=== PATIENT | female | born 1980 | race Caucasian/White ===

== ENCOUNTER 2023-09-11 06:49 | Emergency (ER) | payer BC, SELFPAY ==
[2023-09-11 06:57] VITALS: BP 138/101; PULSE 115; RESP 24; TEMP 36.4; O2SAT 96
[2023-09-11] MEDS: ONDANSETRON 2 MG/ML inj 4 MG IVP ×2 (07:26→09:52)
[2023-09-11] MEDS: 0.9 % SODIUM CHLORIDE 1000 ml 1,000 ML IV ×2 (07:27→09:52)
[2023-09-11 07:29] LABS: Lactate* 2.4 mmol/L (0.5-1.9)
[2023-09-11 07:30] LABS: Basophils Absolute Auto 0.05 K/uL (0.00-0.30); Basophils Percent Auto 0.5 % (0.0-3.0); Eosinophils Absolute Auto 0.09 K/uL (0.00-0.50); Eosinophils Percent Auto 0.9 % (0.0-7.0); Hematocrit 43.5 % (33.0-51.0); Immature Granulocytes Abs Auto 0.01 K/uL (0.00-0.30); Immature Granulocytes Pct Auto 0.1 %; Lymphocytes Percent Auto 18.1 % (20-44); Mean Corpuscular HGB Conc 35 gm/dL (32-36); Mean Corpuscular Hemoglobin 31 pg (26-34); Mean Corpuscular Volume 91 fL (80-100); Monocytes Percent Auto 5.4 % (0.0-11.0); Platelet Count* 282 K/uL (140-440); RDW Coefficient of Variation % 11.3 % (11.5-15.5); Red Blood Count 4.77 m/uL (4.00-5.20); White Blood Count* 10.29 K/uL (4.50-11.00)
[2023-09-11 07:37] LABS: Slide Review Reflex No
--- NOTE | 2023-09-11 07:41 | ED.GENADULT ---
HPI - General Adult General Chief complaint: Nausea/Vomiting <Cheryl Trivedi MD - Last Filed: 09/12/23 00:00> Stated complaint: sore throat,congestion,diarrhea, vomiting <Cheryl Trivedi MD - Last Filed: 09/12/23 00:00> Time Seen by Provider: 09/11/23 07:04 <Cheryl Trivedi MD - Last Filed: 09/12/23 00:00> Source: patient <Cheryl Trivedi MD - Last Filed: 09/12/23 00:00> Mode of arrival: ambulatory <Cheryl Trivedi MD - Last Filed: 09/12/23 00:00> Limitations: no limitations <Cheryl Trivedi MD - Last Filed: 09/12/23 00:00> History of Present Illness HPI narrative: 42-year-old female presents the ED with a 4 day history of initially sore throat, progressing into cough and congestion 3 days ago and now nausea vomiting and diarrhea for the past 2 days. Unable to hold down any liquids. Starting to feel dehydrated. No pertinent travel, no recent antibiotic use. Has been using ibuprofen 400 mg every 6 hours with no significant changes in her symptoms. Has not been evaluated by a provider during this course of illness thus far. No injury or trauma, does have some mild epigastric pain which she attributes to the vomiting. No severe cough or shortness of breath. Feels feverish but has not measured her temperature, some chills. Did home COVID swab that was negative. Gets a little dizzy with activity which she attributes to her dehydration, no focal neuro changes. Past medical history notable for hypertension, takes lisinopril. Allergy to Compazine. Social history notable for nicotine vape use. Denies marijuana. Patient has had multiple abdominal surgeries including 3 prior C-sections, hysterectomy and prior cholecystectomy. She denies a prior history of bowel obstructions. ROS notable for the generalized, GI, HEENT symptoms as above, otherwise denies times 12 systems. <Cheryl Trivedi MD - Last Filed: 09/12/23 00:00> Related Data Home medications: Home Medications Medication Instructions Recorded Confirmed fluticasone propionate 50 2 spray intranasal DAILY 09/11/23 09/11/23 mcg/actuation nasal spray,suspension lisinopril 20 mg tablet 20 mg PO DAILY 09/11/23 09/11/23 <Cheryl Trivedi MD - Last Filed: 09/12/23 00:00> Allergies/adverse reactions: Allergies Allergy/AdvReac Type Severity Reaction Status Date / Time prochlorperazine AdvReac Mild stomach Verified 09/11/23 06:56 [From Compazine] pains <Cheryl Trivedi MD - Last Filed: 09/12/23 00:00> PFSH [facility] Medical History: Medical History Cat bite ?W55.01XA - Bitten by cat, initial encounter (ICD-10) <Cheryl Trivedi MD - Last Filed: 09/12/23 00:00> Social History: Social History Smoking Status: Never smoker <Cheryl Trivedi MD - Last Filed: 09/12/23 00:00> Exam Const: Vital Signs, click to edit/add: Vital Signs - 24 hr 09/11/23 06:57 09/11/23 09:37 09/11/23 11:00 Temperature 97.6 F Pulse Rate [Pulse Oximeter] 115 H 92 82 Respiratory Rate 24 20 16 Blood Pressure [Ri ght Upper Arm] 138/101 H 143/98 H 120/84 Pulse Oximetry 96 95 96 Oxygen Delivery Me thod Room Air Room Air Room Air <hCeryl Trivedi MD - Last Filed: 09/12/23 00:00> Vital Signs, click to edit/add: Vital Signs - 24 hr 09/11/23 06:57 09/11/23 09:37 09/11/23 11:00 Temperature 97.6 F Pulse Rate [Pulse Oximeter] 115 H 92 82 Respiratory Rate 24 20 16 Blood Pressure [Ri ght Upper Arm] 138/101 H 143/98 H 120/84 Pulse Oximetry 96 95 96 Oxygen Delivery Me thod Room Air Room Air Room Air <Nathaniel Nair MD - Last Filed: 09/11/23 11:23> Documenting provider has reviewed patient's vital signs: yes <Cheryl Trivedi MD - Last Filed: 09/12/23 00:00> Common normals: no apparent distress <Cheryl Trivedi MD - Last Filed: 09/12/23 00:00> Other: Appears mildly ill, good historian with no impairment. <Cheryl Trivedi MD - Last Filed: 09/12/23 00:00> HENMT: Common normals: normocephalic <MD Patria Sanchez Last Filed: 09/12/23 00:00> Head and scalp: normocephalic <MD Patria Sanchez Last Filed: 09/12/23 00:00> Face and sinus: normal facial exam <MD Patria Sanchez Last Filed: 09/12/23 00:00> Mouth: oral and palatal mucosa normal <MD Patria Sanchez Last Filed: 09/12/23 00:00> Throat: posterior oropharynx normal <MD Patria Sanchez Last Filed: 09/12/23 00:00> Other: Mucous membranes are slightly dry, otherwise normal. <MD Patria Sanchez Last Filed: 09/12/23 00:00> Eye: General eye: normal appearance of both eyes <MD Patria Sanchez Last Filed: 09/12/23 00:00> Neck & C-Spine: Common normals: full ROM and no lymphadenopathy <MD Patria Sanchez Last Filed: 09/12/23 00:00> Resp: Common normals: normal respiratory effort, no use of accessory muscles and clear to auscultation bilaterally <MD Patria Sanchez Last Filed: 09/12/23 00:00> Effort & inspection: able to speak in complete sentences <MD Patria Sanchez Last Filed: 09/12/23 00:00> Auscultation: clear to auscultation bilaterally <MD Patria Sanchez Last Filed: 09/12/23 00:00> Cardio: Common normals: regular rate, regular rhythm, S1 normal heart sound, S2 normal heart sound and no murmurs <Cheryl Trivedi MD - Last Filed: 09/12/23 00:00> Rate: regular rate <Cheryl Trivedi MD - Last Filed: 09/12/23 00:00> Rhythm: regular rhythm <MD Patria Sanchez Last Filed: 09/12/23 00:00> Heart sounds: S1 normal and S2 normal <Cheryl Trivedi MD - Last Filed: 09/12/23 00:00> Other: Mildly tachycardic, treated to dehydration <MD Patria Sanchez Last Filed: 09/12/23 00:00> GI: Common normals: Normal to inspection, nondistended, normoactive bowel sounds present, soft to palpation, non-tender, no hepatosplenomegaly and no masses <Cheryl Trivedi MD - Last Filed: 09/12/23 00:00> Palpation: soft and no hepatosplenomegaly <MD Patria Sanchez Last Filed: 09/12/23 00:00> Other: Bowel sounds are a little diffusely hypoactive but consistent throughout. <MD Patria Sanchez Last Filed: 09/12/23 00:00> : Common normals: no CVA tenderness <MD Patria Sanchez Last Filed: 09/12/23 00:00> Bladder/kidney exam: no CVA tenderness <MD Patria Sanchez Last Filed: 09/12/23 00:00> Back & Pelvis: Common normals: no CVA tenderness <MD Patria Sanchez Last Filed: 09/12/23 00:00> Extremity: Common normals: normal to inspection and normal capillary refill <MD Patria Sanchez Last Filed: 09/12/23 00:00> Neuro: Speech: speech normal <MD Patria Sanchez Last Filed: 09/12/23 00:00> Motor exam: no tremor noted and no movement abnormalities noted <MD Patria Sanchez Last Filed: 09/12/23 00:00> Psych: Appearance: grossly normal <Cheryl Trivedi MD - Last Filed: 09/12/23 00:00> Attitude: engaged <Cheryl Trivedi MD - Last Filed: 09/12/23 00:00> Activity/motor behavior: appropriate eye contact <Cheryl Trivedi MD - Last Filed: 09/12/23 00:00> Insight: insight good <Cheryl Trivedi MD - Last Filed: 09/12/23 00:00> Judgement: judgment good <Cheryl Trivedi MD - Last Filed: 09/12/23 00:00> Skin: Common normals: no rashes or lesions noted <Cheryl Trivedi MD - Last Filed: 09/12/23 00:00> General skin exam: no rashes or lesions noted <Cheryl Trivedi MD - Last Filed: 09/12/23 00:00> Course Course ED Course: No hypotension but mildly tachycardic, likely secondary to dehydration. Suspicious for viral syndrome, influenza like illness based on presentation. Recommended IV fluid, Zofran, Toradol, Protonix. Swabs for COVID, influenza, RSV recommended. Basic labs to look for pancreatitis, electrolyte abnormalities, kidney function. Risk for prerenal azotemia due to the syncopal use in the setting of illness. Will also obtain urinalysis, lactate level, liver function. Await findings. <Cheryl Trivedi MD - Last Filed: 09/12/23 00:00> Reevaluation(s) Time of Reevaluation #1: 08:12 <Cheryl Trivedi MD - Last Filed: 09/12/23 00:00> Reevaluation #1: Lab findings reviewed with patient, overall quite reassuring. Mild dehydration noted. Patient already starting to feel better from the Zofran and Toradol, currently receiving her Protonix and then will receive her 1 L of IV fluid. I am going to hand over to my in coming day shift partner. Prescription plan for Zofran as needed, suspect viral gastroenteritis. Tylenol and NSAIDs discussed with patient. Nursing team to re-evaluate and update provider after completion of all medications. If not improving, would recommend further assessment, CT scan and another L of IV fluid. - Shikha <Cheryl Trivedi MD - Last Filed: 09/12/23 00:00> Vital Signs Vital signs: Initial Vital Signs Temperature 97.6 F 09/11/23 06:57 Temperature Source Temporal Artery Scan 09/11/23 06:57 Pulse Rate 115 H 09/11/23 06:57 Respiratory Rate 24 09/11/23 06:57 Blood Pressure 138/101 H 09/11/23 06:57 Blood Pressure Mean 113 H 09/11/23 06:57 Pulse Oximetry 96 09/11/23 06:57 Oxygen Delivery Method Room Air 09/11/23 06:57 Vital Signs Temperature 97.6 F 09/11/23 06:57 Pulse Rate 115 H 09/11/23 06:57 Respiratory Rate 24 09/11/23 06:57 Blood Pressure 138/101 H 09/11/23 06:57 Pulse Oximetry 96 09/11/23 06:57 Oxygen Delivery Method Room Air 09/11/23 06:57 Temperature 97.6 F 09/11/23 06:57 Pulse Rate 82 09/11/23 11:00 Respiratory Rate 16 09/11/23 11:00 Blood Pressure 120/84 09/11/23 11:00 Pulse Oximetry 96 09/11/23 11:00 Oxygen Delivery Method Room Air 09/11/23 11:00 <Cheryl Trivedi MD - Last Filed: 09/12/23 00:00> Initial Vital Signs Temperature 97.6 F 09/11/23 06:57 Temperature Source Temporal Artery Scan 09/11/23 06:57 Pulse Rate 115 H 09/11/23 06:57 Respiratory Rate 24 09/11/23 06:57 Blood Pressure 138/101 H 09/11/23 06:57 Blood Pressure Mean 113 H 09/11/23 06:57 Pulse Oximetry 96 09/11/23 06:57 Oxygen Delivery Method Room Air 09/11/23 06:57 Vital Signs Temperature 97.6 F 09/11/23 06:57 Pulse Rate 115 H 09/11/23 06:57 Respiratory Rate 24 09/11/23 06:57 Blood Pressure 138/101 H 09/11/23 06:57 Pulse Oximetry 96 09/11/23 06:57 Oxygen Delivery Method Room Air 09/11/23 06:57 Temperature 97.6 F 09/11/23 06:57 Pulse Rate 82 09/11/23 11:00 Respiratory Rate 16 09/11/23 11:00 Blood Pressure 120/84 09/11/23 11:00 Pulse Oximetry 96 09/11/23 11:00 Oxygen Delivery Method Room Air 09/11/23 11:00 <Nathaniel Nair MD - Last Filed: 09/11/23 11:23> Medications Administered Medications: Discontinued Medications Generic Name Dose Route Start Last Admin Trade Name Freq PRN Reason Stop Dose Admin Hydromorphone HCl 0.5 mg 09/11/23 09:37 09/11/23 09:52 Hydromorphone 0.5 Mg/0.5 Ml Inj IVP 09/11/23 09:38 0.5 mg ONCE ONE Administration Sodium Chloride 1,000 mls @ 1,000 mls/hr 09/11/23 07:05 09/11/23 09:26 0.9 % Sodium Chloride 1000 Ml IV 09/11/23 08:04 Infused .Q1H VICKY Infusion Sodium Chloride 1,000 mls @ 1,000 mls/hr 09/11/23 09:45 09/11/23 11:08 0.9 % Sodium Chloride 1000 Ml IV 09/11/23 10:44 Infused .Q1H VICKY Infusion Ketorolac Tromethamine 15 mg 09/11/23 07:47 09/11/23 08:00 Ketorolac 15 Mg/Ml Inj IVP 09/11/23 07:48 15 mg ONCE ONE Administration Ondansetron HCl 4 mg 09/11/23 07:04 09/11/23 07:26 Ondansetron 2 Mg/Ml Inj IVP 09/11/23 07:05 4 mg ONCE ONE Administration Ondansetron HCl 4 mg 09/11/23 09:37 09/11/23 09:52 Ondansetron 2 Mg/Ml Inj IVP 09/11/23 09:38 4 mg ONCE ONE Administration Pantoprazole Sodium 40 mg 09/11/23 07:47 09/11/23 08:00 Pantoprazole Sodium 40 Mg Inj IVP 09/11/23 07:48 40 mg ONCE ONE Administration <Cheryl Trivedi MD - Last Filed: 09/12/23 00:00> Discontinued Medications Generic Name Dose Route Start Last Admin Trade Name Freq PRN Reason Stop Dose Admin Hydromorphone HCl 0.5 mg 09/11/23 09:37 09/11/23 09:52 Hydromorphone 0.5 Mg/0.5 Ml Inj IVP 09/11/23 09:38 0.5 mg ONCE ONE Administration Sodium Chloride 1,000 mls @ 1,000 mls/hr 09/11/23 07:05 09/11/23 09:26 0.9 % Sodium Chloride 1000 Ml IV 09/11/23 08:04 Infused .Q1H VICKY Infusion Sodium Chloride 1,000 mls @ 1,000 mls/hr 09/11/23 09:45 09/11/23 11:08 0.9 % Sodium Chloride 1000 Ml IV 09/11/23 10:44 Infused .Q1H VICKY Infusion Ketorolac Tromethamine 15 mg 09/11/23 07:47 09/11/23 08:00 Ketorolac 15 Mg/Ml Inj IVP 09/11/23 07:48 15 mg ONCE ONE Administration Ondansetron HCl 4 mg 09/11/23 07:04 09/11/23 07:26 Ondansetron 2 Mg/Ml Inj IVP 09/11/23 07:05 4 mg ONCE ONE Administration Ondansetron HCl 4 mg 09/11/23 09:37 09/11/23 09:52 Ondansetron 2 Mg/Ml Inj IVP 09/11/23 09:38 4 mg ONCE ONE Administration Pantoprazole Sodium 40 mg 09/11/23 07:47 09/11/23 08:00 Pantoprazole Sodium 40 Mg Inj IVP 09/11/23 07:48 40 mg ONCE ONE Administration <Nathaniel Nair MD - Last Filed: 09/11/23 11:23> Medical Decision Making MDM Narrative Medical decision making narrative: CT scan of the abdomen and pelvis radiology report: Hepatic steatosis. No acute findings. This patient is reassured with results and is feeling better with the treatments administered. She is okay to return home to increase diet as tolerated. <Nathaniel Nair MD - Last Filed: 09/11/23 11:23> Lab Data Lab results reviewed: Yes I reviewed the patient's lab results <Cheryl Trivedi MD - Last Filed: 09/12/23 00:00> Labs: Lab Results 09/11/23 09/11/23 Range/Units 07:05 07:20 WBC 10.29 (4.50-11.00) K/uL RBC 4.77 (4.00-5.20) m/uL Hgb 15.0 (12.0-16.0) gm/dL Hct 43.5 (33.0-51.0) % MCV 91 (80-100) fL MCH 31 (26-34) pg MCHC 35 (32-36) gm/dL RDW Coeff of Jerome 11.3 L (11.5-15.5) % Plt Count 282 (140-440) K/uL Neut % (Auto) 75.0 H (42.0-72.0) % Lymph % (Auto) 18.1 L (20-44) % Cottle % (Auto) 5.4 (0.0-11.0) % Eos % (Auto) 0.9 (0.0-7.0) % Baso % (Auto) 0.5 (0.0-3.0) % Neut # (Auto) 7.70 H (1.7-7.0) K/uL Lymph # (Auto) 1.90 (0.90-2.90) K/uL Cottle # (Auto) 0.60 (0.00-0.90) K/UL Eos # (Auto) 0.09 (0.00-0.50) K/uL Baso # (Auto) 0.05 (0.00-0.30) K/uL Abs Immat Gran (auto) 0.01 (0.00-0.30) K/uL Imm/Tot Granulo (auto) 0.1 % Sodium 136 (135-149) mmol/L Potassium 4.6 (3.6-5.1) mmol/L Chloride 103 (96-114) mmol/L Carbon Dioxide 21 (20-32) mmol/L Anion Gap 12 (7-15) mEq/L BUN 10 (5-24) mg/dL Creatinine 0.5 (0.5-1.5) mg/dL Estimated Creat Clear 125.28 Estimated GFR 119 ml/min Glucose 110 (60-115) mg/dL Lactate 2.4 H (0.5-1.9) mmol/L Calcium 8.9 (8.4-10.6) mg/dL Total Bilirubin 0.5 (0.1-1.5) mg/dL AST 53 H (12-35) U/L ALT 44 H (4-35) U/L Alkaline Phosphatase 79 (40-150) U/L C-Reactive Protein 1.5 H (0.5-1.0) mg/dL Total Protein 8.3 (6.0-8.3) g/dL Albumin 4.9 (3.3-5.0) g/dL Lipase 40 (23-300) U/L SARS-CoV-2 (PCR) Negative SARS-CoV-2 (Negative) Influenza Type A (PCR) Negative PCR FLU A (Negative) Influenza Type B (PCR) Negative PCR FLU B (Negative) RSV (PCR) Negative PCR RSV (Negative) <Cheryl Trivedi MD - Last Filed: 09/12/23 00:00> Lab Results 09/11/23 09/11/23 Range/Units 07:05 07:20 WBC 10.29 (4.50-11.00) K/uL RBC 4.77 (4.00-5.20) m/uL Hgb 15.0 (12.0-16.0) gm/dL Hct 43.5 (33.0-51.0) % MCV 91 (80-100) fL MCH 31 (26-34) pg MCHC 35 (32-36) gm/dL RDW Coeff of Jerome 11.3 L (11.5-15.5) % Plt Count 282 (140-440) K/uL Neut % (Auto) 75.0 H (42.0-72.0) % Lymph % (Auto) 18.1 L (20-44) % Cottle % (Auto) 5.4 (0.0-11.0) % Eos % (Auto) 0.9 (0.0-7.0) % Baso % (Auto) 0.5 (0.0-3.0) % Neut # (Auto) 7.70 H (1.7-7.0) K/uL Lymph # (Auto) 1.90 (0.90-2.90) K/uL Cottle # (Auto) 0.60 (0.00-0.90) K/UL Eos # (Auto) 0.09 (0.00-0.50) K/uL Baso # (Auto) 0.05 (0.00-0.30) K/uL Abs Immat Gran (auto) 0.01 (0.00-0.30) K/uL Imm/Tot Granulo (auto) 0.1 % Sodium 136 (135-149) mmol/L Potassium 4.6 (3.6-5.1) mmol/L Chloride 103 (96-114) mmol/L Carbon Dioxide 21 (20-32) mmol/L Anion Gap 12 (7-15) mEq/L BUN 10 (5-24) mg/dL Creatinine 0.5 (0.5-1.5) mg/dL Estimated Creat Clear 125.28 Estimated GFR 119 ml/min Glucose 110 (60-115) mg/dL Lactate 2.4 H (0.5-1.9) mmol/L Calcium 8.9 (8.4-10.6) mg/dL Total Bilirubin 0.5 (0.1-1.5) mg/dL AST 53 H (12-35) U/L ALT 44 H (4-35) U/L Alkaline Phosphatase 79 (40-150) U/L C-Reactive Protein 1.5 H (0.5-1.0) mg/dL Total Protein 8.3 (6.0-8.3) g/dL Albumin 4.9 (3.3-5.0) g/dL Lipase 40 (23-300) U/L SARS-CoV-2 (PCR) Negative SARS-CoV-2 (Negative) Influenza Type A (PCR) Negative PCR FLU A (Negative) Influenza Type B (PCR) Negative PCR FLU B (Negative) RSV (PCR) Negative PCR RSV (Negative) <Nathaniel Nair MD - Last Filed: 09/11/23 11:23> Discharge Plan Discharge Clinical Impression: Gastroenteritis <Cheryl Trivedi MD - Last Filed: 09/12/23 00:00> Patient Disposition: Home, Self-Care <Cheryl Trivedi MD - Last Filed: 09/12/23 00:00> Condition: Improved <Cheryl Trivedi MD - Last Filed: 09/12/23 00:00> Instructions: Gastroenteritis (DC) <Cheryl Trivedi MD - Last Filed: 09/12/23 00:00> Additional Instructions: As we discussed, your symptoms seem to be from a viral illness. There seems to be mild dehydration but no severe signs of illness. The labs are overall reassuring. I would recommend that you hold your lisinopril for today, may restart tomorrow if you start feeling better. You were given a combination of Protonix which is a stomach acid soothing medicine, Zofran which is an anti nausea medicine and Toradol which is a nonnarcotic used for pain. You were also given a L of IV fluid. I will give you a prescription for some additional Zofran. You may take this up to every 6 hours as needed for nausea and vomiting. It should help prevent further dehydration. Drink lots of fluids. It is okay to use Tylenol and ibuprofen as needed for headache, body aches and sore throat. Your swabs were negative for influenza, COVID and RSV as expected. Stay home today but may attempt work tomorrow if you are feeling markedly better. If you continue to run high fevers, have severe vomiting not relieved by the Zofran, bloody stools, severe weakness or other symptoms of concerning worsening, please come back to the emergency department. <Cheryl Trivedi MD - Last Filed: 09/12/23 00:00> Activity Level: Activity as Tolerated <Cheryl Trivedi MD - Last Filed: 09/12/23 00:00> Activity as Tolerated <Nathaniel Nair MD - Last Filed: 09/11/23 11:23> Discharge Diet: Regular <Cheryl Trivedi MD - Last Filed: 09/12/23 00:00> Regular <Nathaniel Nair MD - Last Filed: 09/11/23 11:23> Prescriptions: No Action lisinopril 20 mg tablet 20 mg PO DAILY fluticasone propionate 50 mcg/actuation spray,suspension 2 spray INTRANASAL DAILY <Cheryl Trivedi MD - Last Filed: 09/12/23 00:00> Follow Up/Referrals: oMnse Pereira MD [Primary Care Provider] - <Cheryl Trivedi MD - Last Filed: 09/12/23 00:00> Stand Alone Forms: [facility] Info Instructions <Cheryl Trivedi MD - Last Filed: 09/12/23 00:00>
[2023-09-11 07:46] LABS: Albumin* 4.9 g/dL (3.3-5.0); Chloride* 103 mmol/L (96-114); Sodium* 136 mmol/L (135-149)
[2023-09-11 07:47] LABS: Potassium* 4.6 mmol/L (3.6-5.1)
[2023-09-11 07:49] LABS: Anion Gap 12 mEq/L (7-15); Bilirubin Total* 0.5 mg/dL (0.1-1.5); Carbon Dioxide* 21 mmol/L (20-32); Creatinine* 0.5 mg/dL (0.5-1.5); Est. Creatinine Clearance* 125.28; Estimated Glomerular Filt Rate 119 ml/min
[2023-09-11 07:50] LABS: PCR FLU A Negative PCR FLU A (Negative); PCR FLU B Negative PCR FLU B (Negative); PCR RSV Negative PCR RSV (Negative)
[2023-09-11 07:50] LABS: Alanine Aminotransferase* 44 U/L (4-35); Alkaline Phosphatase* 79 U/L (40-150); Aspartate Amino Transferase* 53 U/L (12-35); Blood Urea Nitrogen* 10 mg/dL (5-24); Calcium* 8.9 mg/dL (8.4-10.6); Glucose* 110 mg/dL (60-115); Lipase* 40 U/L (23-300); Total Protein* 8.3 g/dL (6.0-8.3)
[2023-09-11 07:51] LABS: SARS PCR* Negative SARS-CoV-2 (Negative)
[2023-09-11 07:53] LABS: C Reactive Protein* 1.5 mg/dL (0.5-1.0)
[2023-09-11] MEDS: KETOROLAC 15 MG/ML inj IVP (08:00)
[2023-09-11] MEDS: PANTOPRAZOLE SODIUM 40 MG INJ IVP (08:00)
--- NOTE | 2023-09-11 09:33 | ED.NURSE ---
patient is having increased pain in the epigastric area and rating 8/10 scale, tearful. Informed Dr. Valderrama of this and is unsuccessful in finding someone to get a ride home.
[2023-09-11 09:37] VITALS: BP 143/98; PULSE 92; RESP 20; O2SAT 95
--- NOTE | 2023-09-11 09:37 | CRLHL7_ITS ---
For Patients: As a result of the Century Cures Act, medical imaging exams and procedure reports are released immediately into your electronic medical record. You may view this report before your referring provider. If you have questions, please contact your health care provider. INDICATION: Epigastric pain COMPARISON: 07/02/2017 TECHNIQUE: CT of the abdomen and pelvis after the administration of intravenous contrast. Multiplanar axial, coronal, and sagittal reformats were reconstructed. Contrast: 85 mL Isovue 370 intravenously. Oral contrast was not administered. FINDINGS: Lung bases: Normal. Liver: Mild diffuse hepatic steatosis. No masses. Normal vasculature. Gallbladder and biliary tree: Cholecystectomy. No biliary duct dilation. Pancreas: Normal. Spleen: Normal. Normal size. Adrenal glands: Normal. No nodules. Kidneys and bladder: Normal size and position. Circumaortic left renal vein. No cyst or mass. No calculi. No urinary tract dilation. The urinary bladder is normal. GI: Normal. No dilated segments. No abnormal bowel wall thickening or hyperenhancement. Small stool burden. The appendix is normal. Vessels: Aorta and major branches, including the mesenteric vessels: Patent. Normal caliber. No atherosclerotic plaques. IVC and tributaries: Normal. Mesenteric and portal veins: Normal. Peritoneum: No free fluid. Lymph nodes: No adenopathy. Pelvis: Hysterectomy. Physiologic appearance of ovaries. No pelvic mass. Bones: No fractures. No focal bone lesions. Normal for age. Abdominal wall: Abdominal wall diastasis. Healed abdominal incisions. IMPRESSION: Hepatic steatosis. No acute findings. Please note that all CT scans at this facility use dose modulation, iterative reconstruction, and/or weight-based dosing when appropriate to reduce radiation dose to as low as reasonably achievable. Dictated by Donna Theodore MD @ 09/11/2023 11:05:34 AM (Electronically Signed)
[2023-09-11] MEDS: HYDROmorphone 0.5 mg/0.5 ml inj IVP (09:52)
--- NOTE | 2023-09-11 09:58 | ED.NURSE ---
patient stated the pain comes and goes, agreed to have pain medication 8/10 scale. rocking back and forth on bed. given Zofran before and then Dilaudid. pulse ox 95% room air and [id number]/98
[2023-09-11 11:00] VITALS: BP 120/84; PULSE 82; RESP 16; O2SAT 96
== END 2023-09-11 11:33 | disposition home or self-care (01) ==
PROVIDERS: Family Medicine; Emergency Provider Emergency Medicine Emergency Medical Services; PCP Family Medicine
DX: B34.9 Viral infection, unspecified (principal); H10.023 Other mucopurulent conjunctivitis, bilateral; F43.9 Reaction to severe stress, unspecified
CPT/HCPCS: 36415; 74177; 80053; 83605; 83690; 85025; 86140; 87631; 96374; 96375; 99284; C9113; J1170; J1885; J2405; J7030; Q9967

== ENCOUNTER 2023-09-13 07:40 | Emergency (ER) | payer BC, SELFPAY ==
[2023-09-13 07:47] VITALS: BP 148/96; RESP 18; TEMP 36.2; O2SAT 99
--- NOTE | 2023-09-13 08:36 | ED.GENADULT ---
HPI - General Adult General Chief complaint: Abdominal Pain Stated complaint: flu symptoms / eye pain Time Seen by Provider: 09/13/23 08:16 History of Present Illness HPI narrative: [age] year white female who was here couple days ago and had a negative CT scan abdomen as well as negative lab studies, negative viral studies, presents with red eyes irritation in her eyes, and some intermittent epigastric discomfort. She has had no fevers. She denies chest pain, denies shortness of breath, she feels broken. She just feels she just can not get better, she feels she has responsibilities with her children in her job and these are being met by her report. She is having trouble because she has felt sick. She has had no dysuria, diarrhea, she had a battery of tests few days ago and including a CT scan that showed hepatic cyst the a ptosis of her abdomen. We discussed her treatment plan and follow-up and at this point she is able to eat and drink but I think rehydrating her would be is propria as well as some eye antibiotics for her conjunctivitis. Will recheck viral studies and lab studies and Related Data Home Medications Medication Instructions Recorded Confirmed fluticasone propionate 50 2 spray intranasal DAILY 09/11/23 09/11/23 mcg/actuation nasal spray,suspension lisinopril 20 mg tablet 20 mg PO DAILY 09/11/23 09/11/23 Previous Rx's Medication Instructions Recorded cephalexin 500 mg capsule 500 mg PO TID #42 caps 09/13/23 Allergies Allergy/AdvReac Type Severity Reaction Status Date / Time prochlorperazine AdvReac Mild stomach Verified 09/11/23 06:56 [From Compazine] pains Review of Systems Status of ROS: Reports: 10 or more systems reviewed and unremarkable except as noted in History and below [facility] Medical History Cat bite ?W55.01XA - Bitten by cat, initial encounter (ICD-10) Social History Smoking Status: Never smoker Do you use any of these nicotine containing products: Vaping Products How often do you have a drink containing alcohol: never How often do you have six or more drinks on one occasion: Never AUDIT-C Alcohol total score: 0 Non-prescribed substance use: denies use Exam Narrative: Exam Narrative: Objective: Patient's blood pressure slightly elevated, afebrile, good O2 sat She is in mild distress secondary illness she is alert or x3, has conjunctivitis bilaterally, no facial asymmetry, mouth clear, Chest is clear, heart rhythm regular without murmur Abdomen benign mild epigastric tenderness to palpation. Extremities are no edema, no rashes noted, neurologic normal Const: Vital Signs, click to edit/add: Vital Signs - 24 hr 09/13/23 07:47 09/13/23 10:07 Temperature 97.1 F L Pulse Rate [Right Pulse Oximeter] 70 Respiratory Rate 18 18 Blood Pressure [Ri t Upper Arm] 148/96 H 132/91 H Pulse Oximetry 99 98 Oxygen Delivery Me thod Room Air Room Air Course Vital Signs Vital signs: Initial Vital Signs Temperature 97.1 F L 09/13/23 07:47 Temperature Source Temporal Artery Scan 09/13/23 07:47 Respiratory Rate 18 09/13/23 07:47 Blood Pressure 148/96 H 09/13/23 07:47 Blood Pressure Mean 113 H 09/13/23 07:47 Blood Pressure Position Sitting 09/13/23 07:47 Pulse Oximetry 99 09/13/23 07:47 Oxygen Delivery Method Room Air 09/13/23 07:47 Vital Signs Temperature 97.1 F L 09/13/23 07:47 Respiratory Rate 18 09/13/23 07:47 Blood Pressure 148/96 H 09/13/23 07:47 Pulse Oximetry 99 09/13/23 07:47 Oxygen Delivery Method Room Air 09/13/23 07:47 Temperature 97.1 F L 09/13/23 07:47 Pulse Rate 70 09/13/23 10:07 Respiratory Rate 18 09/13/23 10:07 Blood Pressure 132/91 H 09/13/23 10:07 Pulse Oximetry 98 09/13/23 10:07 Oxygen Delivery Method Room Air 09/13/23 10:07 Medications Administered Medications: Discontinued Medications Generic Name Dose Route Start Last Admin Trade Name Freq PRN Reason Stop Dose Admin Sodium Chloride 1,000 mls @ 6,000 mls/hr 09/13/23 08:45 09/13/23 11:00 0.9 % Sodium Chloride 1000 Ml IV 09/13/23 08:54 Infused .Q10M VICKY Infusion Lorazepam 0.5 mg 09/13/23 08:45 09/13/23 09:27 Lorazepam 2 Mg/Ml Inj IVP 09/13/23 08:46 0.5 mg ONCE ONE Administration Pantoprazole Sodium 40 mg 09/13/23 08:45 09/13/23 09:28 Pantoprazole Sodium 40 Mg Inj IVP 09/13/23 08:46 40 mg ONCE ONE Administration Medical Decision Making MDM Narrative Medical decision making narrative: 42-year-old white female with conjunctivitis, and a viral type syndrome, will check blood cultures, influenza and viral other viral studies. Will recheck her lab studies, IV fluid 1 L. she describes a good amount of stress from her being sick and her responsibilities to work and family. She feels that is cause some depressive symptoms. She does not feel suicidal or homicidal. She will get the above-mentioned studies and disposition pending findings. Addendum 11:00 a.m.: The patient has an EKG that by my read shows normal sinus rhythm. Her troponin is negative as well. , her CRP is elevated but she does have conjunctivitis and upper respiratory symptoms, her troponin is 0, white count is 9000, chemistry profile is unremarkable, lactate is normal, urinalysis looks non clean catch would await the culture. For her conjunctivitis and retro-orbital discomfort that is mild I think I would treat her with Keflex 500 t.i.d. for 10 days, her COVID studies are negative as well as RSV and influenza. I would keep her off work for 4-5 days, note written, return as needed before primary care follow-up. Lab Data Labs: Lab Results 09/13/23 09/13/23 09/13/23 Range/Units 08:46 09:05 09:35 WBC 9.19 (4.50-11.00) K/uL RBC 4.45 (4.00-5.20) m/uL Hgb 14.0 (12.0-16.0) gm/dL Hct 41.2 (33.0-51.0) % MCV 93 (80-100) fL MCH 32 (26-34) pg MCHC 34 (32-36) gm/dL RDW Coeff of [place] 11.2 L (11.5-15.5) % Plt Count 230 (140-440) K/uL Neut % (Auto) 77.7 H (42.0-72.0) % Lymph % (Auto) 16.0 L (20-44) % [place] % (Auto) 4.9 (0.0-11.0) % Eos % (Auto) 0.8 (0.0-7.0) % Baso % (Auto) 0.4 (0.0-3.0) % Neut # (Auto) 7.10 H (1.7-7.0) K/uL Lymph # (Auto) 1.50 (0.90-2.90) K/uL [place] # (Auto) 0.50 (0.00-0.90) K/UL Eos # (Auto) 0.07 (0.00-0.50) K/uL Baso # (Auto) 0.04 (0.00-0.30) K/uL Abs Immat Gran (auto) 0.02 (0.00-0.30) K/uL Imm/Tot Granulo (auto) 0.2 % Sodium 136 (135-149) mmol/L Potassium 4.2 (3.6-5.1) mmol/L Chloride 105 (96-114) mmol/L Carbon Dioxide 22 (20-32) mmol/L Anion Gap 9 (7-15) mEq/L BUN 7 (5-24) mg/dL Creatinine 0.6 (0.5-1.5) mg/dL Estimated Creat Clear 104.40 Estimated GFR 114 ml/min Glucose 109 (60-115) mg/dL Lactate 1.4 (0.5-1.9) mmol/L Calcium 9.6 (8.4-10.6) mg/dL Total Bilirubin 0.5 (0.1-1.5) mg/dL Direct Bilirubin 0.1 (0.0-0.5) mg/dL AST 34 (12-35) U/L ALT 34 (4-35) U/L Alkaline Phosphatase 85 (40-150) U/L C-Reactive Protein 3.4 H (0.5-1.0) mg/dL NT-Pro-B Natriuret Pep 310 pg/mL Total Protein 8.1 (6.0-8.3) g/dL Albumin 4.8 (3.3-5.0) g/dL Amylase 37 (18-89) U/L Urine Color (Yellow) Urine Appearance (Clear) Urine pH (5.0-8.5) Ur Specific [place] (1.000-1.030) Urine Protein (Negative) Urine Glucose (UA) (Negative) Urine Ketones (Negative) Urine Blood (Negative) Urine Nitrite (Negative) Urine Bilirubin (Negative) Urine Urobilinogen (0.2-1.0) Ur Leukocyte Esterase (Negative) Urine RBC (0-2) Urine WBC (0-5) Ur Squamous Epith Cells (None-Few) Urine Bacteria (None) SARS-CoV-2 (PCR) Negative SARS-CoV-2 (Negative) Influenza Type A (PCR) Negative PCR FLU A (Negative) Influenza Type B (PCR) Negative PCR FLU B (Negative) RSV (PCR) Negative PCR RSV (Negative) POC Troponin I 0.00 L (0.01-0.04) ng/ml 09/13/23 Range/Units 10:15 WBC (4.50-11.00) K/uL RBC (4.00-5.20) m/uL Hgb (12.0-16.0) gm/dL Hct (33.0-51.0) % MCV (80-100) fL MCH (26-34) pg MCHC (32-36) gm/dL RDW Coeff of [place] (11.5-15.5) % Plt Count (140-440) K/uL Neut % (Auto) (42.0-72.0) % Lymph % (Auto) (20-44) % [place] % (Auto) (0.0-11.0) % Eos % (Auto) (0.0-7.0) % Baso % (Auto) (0.0-3.0) % Neut # (Auto) (1.7-7.0) K/uL Lymph # (Auto) (0.90-2.90) K/uL [place] # (Auto) (0.00-0.90) K/UL Eos # (Auto) (0.00-0.50) K/uL Baso # (Auto) (0.00-0.30) K/uL Abs Immat Gran (auto) (0.00-0.30) K/uL Imm/Tot Granulo (auto) % Sodium (135-149) mmol/L Potassium (3.6-5.1) mmol/L Chloride (96-114) mmol/L Carbon Dioxide (20-32) mmol/L Anion Gap (7-15) mEq/L BUN (5-24) mg/dL Creatinine (0.5-1.5) mg/dL Estimated Creat Clear Estimated GFR ml/min Glucose (60-115) mg/dL Lactate (0.5-1.9) mmol/L Calcium (8.4-10.6) mg/dL Total Bilirubin (0.1-1.5) mg/dL Direct Bilirubin (0.0-0.5) mg/dL AST (12-35) U/L ALT (4-35) U/L Alkaline Phosphatase (40-150) U/L C-Reactive Protein (0.5-1.0) mg/dL NT-Pro-B Natriuret Pep pg/mL Total Protein (6.0-8.3) g/dL Albumin (3.3-5.0) g/dL Amylase (18-89) U/L Urine Color [place] A (Yellow) Urine Appearance Slightly Cloudy A (Clear) Urine pH 6.0 (5.0-8.5) Ur Specific [place] >= 1.030 (1.000-1.030) Urine Protein 1+ A (Negative) Urine Glucose (UA) Negative (Negative) Urine Ketones Negative (Negative) Urine Blood Trace-intact A (Negative) Urine Nitrite Positive A (Negative) Urine Bilirubin 1+ A (Negative) Urine Urobilinogen 1.0 (0.2-1.0) Ur Leukocyte Esterase Negative (Negative) Urine RBC 0-2 (0-2) Urine WBC 0-2 (0-5) Ur Squamous Epith Cells Moderate A (None-Few) Urine Bacteria Many A (None) SARS-CoV-2 (PCR) (Negative) Influenza Type A (PCR) (Negative) Influenza Type B (PCR) (Negative) RSV (PCR) (Negative) POC Troponin I (0.01-0.04) ng/ml Discharge Plan Discharge Clinical Impression: Stress, Acute viral syndrome, Conjunctivitis Patient Disposition: Home w/ Parent or Adult Condition: Improved Additional Instructions: rest, fluids, observation, recheck with primary care in the next several days, antibiotics as described for eye. Activity Level: Light activity Activity Detail: recommend off work for the next 4-5 days. Discharge Diet: Regular Prescriptions: New cephalexin 500 mg capsule 500 mg PO TID Qty: 42 0RF No Action lisinopril 20 mg tablet 20 mg PO DAILY fluticasone propionate 50 mcg/actuation spray,suspension 2 spray INTRANASAL DAILY Follow Up/Referrals: Monse Pereira MD [Primary Care Provider] - Stand Alone Forms: [employer] Info Instructions
--- NOTE | 2023-09-13 08:45 | CRLHL7_ITS ---
For Patients: As a result of the Century Cures Act, medical imaging exams and procedure reports are released immediately into your electronic medical record. You may view this report before your referring provider. If you have questions, please contact your health care provider. INDICATION: Weakness COMPARISON: May 05, 2016 TECHNIQUE: Single-view chest radiograph FINDINGS: TUBES AND LINES: Loop recorder on the left HEART AND MEDIASTINUM: The heart size is normal. The mediastinal contour appears normal for patient age. LUNGS AND PLEURAL SPACES: The lungs appear normal.The pleural spaces are unremarkable. OSSEOUS STRUCTURES: Age-appropriate appearance. No acute focal finding. IMPRESSION: No evidence of active pulmonary disease. A loop recorder is noted. Dictated by Juan Young MD @ 09/13/2023 9:10:37 AM (Electronically Signed)
[2023-09-13 09:20] LABS: Lactate* 1.4 mmol/L (0.5-1.9)
[2023-09-13 09:22] LABS: Basophils Absolute Auto 0.04 K/uL (0.00-0.30); Basophils Percent Auto 0.4 % (0.0-3.0); Eosinophils Absolute Auto 0.07 K/uL (0.00-0.50); Eosinophils Percent Auto 0.8 % (0.0-7.0); Hematocrit 41.2 % (33.0-51.0); Immature Granulocytes Abs Auto 0.02 K/uL (0.00-0.30); Immature Granulocytes Pct Auto 0.2 %; Mean Corpuscular HGB Conc 34 gm/dL (32-36); Mean Corpuscular Hemoglobin 32 pg (26-34); Mean Corpuscular Volume 93 fL (80-100); Monocytes Percent Auto 4.9 % (0.0-11.0); Neutrophils Percent Auto 77.7 % (42.0-72.0); Platelet Count* 230 K/uL (140-440); RDW Coefficient of Variation % 11.2 % (11.5-15.5); Red Blood Count 4.45 m/uL (4.00-5.20); White Blood Count* 9.19 K/uL (4.50-11.00)
[2023-09-13 09:26] LABS: Slide Review Reflex No
[2023-09-13] MEDS: LORazepam 2 MG/ML inj 0.5 MG IVP (09:27)
[2023-09-13] MEDS: 0.9 % SODIUM CHLORIDE 1000 ml 1,000 ML 6000 ML IV (09:28)
[2023-09-13] MEDS: PANTOPRAZOLE SODIUM 40 MG INJ IVP (09:28)
[2023-09-13 09:38] LABS: Albumin* 4.8 g/dL (3.3-5.0)
[2023-09-13 09:42] LABS: Alanine Aminotransferase* 34 U/L (4-35); Alkaline Phosphatase* 85 U/L (40-150); Aspartate Amino Transferase* 34 U/L (12-35); Bilirubin Direct* 0.1 mg/dL (0.0-0.5); Bilirubin Total* 0.5 mg/dL (0.1-1.5); Chloride* 105 mmol/L (96-114); Potassium* 4.2 mmol/L (3.6-5.1); Sodium* 136 mmol/L (135-149); Total Protein* 8.1 g/dL (6.0-8.3)
[2023-09-13 09:44] LABS: Amylase* 37 U/L (18-89)
[2023-09-13 09:45] LABS: Anion Gap 9 mEq/L (7-15); Blood Urea Nitrogen* 7 mg/dL (5-24); C Reactive Protein* 3.4 mg/dL (0.5-1.0); Calcium* 9.6 mg/dL (8.4-10.6); Carbon Dioxide* 22 mmol/L (20-32); Creatinine* 0.6 mg/dL (0.5-1.5); Estimated Glomerular Filt Rate 114 ml/min; Glucose* 109 mg/dL (60-115)
[2023-09-13 09:51] LABS: NT Pro B Type NatriureticPept* 310 pg/mL
[2023-09-13 10:07] VITALS: BP 132/91; PULSE 70; RESP 18; O2SAT 98
[2023-09-13 10:21] LABS: PCR FLU A Negative PCR FLU A (Negative); PCR FLU B Negative PCR FLU B (Negative); PCR RSV Negative PCR RSV (Negative)
[2023-09-13 10:22] LABS: SARS PCR* Negative SARS-CoV-2 (Negative)
[2023-09-13 10:25] LABS: Appearance Urine Slightly Cloudy (Clear); Bilirubin Urine 1+ (Negative); Blood Urine Trace-intact (Negative); Color Urine Orange (Yellow); Glucose Urine Negative (Negative); Ketones Urine Negative (Negative); Leukocyte Esterase Urine Negative (Negative); Nitrite Urine Positive (Negative); Protein Urine 1+ (Negative); Specific Gravity Urine >= 1.030 (1.000-1.030)
[2023-09-13 10:36] LABS: Bacteria Urine Many; RBC Urine 0-2 (0-2); Squamous Epithelial Cell Urine Moderate (None-Few); WBC Urine 0-2 (0-5)
== END 2023-09-13 11:20 | disposition home or self-care (01) ==
PROVIDERS: Emergency Provider Family Medicine; PCP Family Medicine
DX: B34.9 Viral infection, unspecified (principal); H10.023 Other mucopurulent conjunctivitis, bilateral; F43.9 Reaction to severe stress, unspecified
CPT/HCPCS: 36415; 71045; 80048; 80076; 81001; 82150; 83605; 83880; 84484; 85025; 86140; 87040; 87086; 87631; 93005; 95992; 96374; 96375; 99284; 99285; C9113; J2060; J7030